=== PATIENT | female | born 1955 | race Caucasian/White ===

== ENCOUNTER → 2016-12-10 | Day surgery (SDC) | payer OTHER ==
[~2016-12-10] VITALS: Ht 165.1 cm; Wt 63.0 kg
[~2016-12-10] MED LIST: DIAZ10TA3 PO; IMMUNE GLOBULIN 5 GM IV SCH; IVIG 20 GM IV ONE; KETOROLAC 30 MG/ML VIAL IV PRN; LACT10SO PO; NYST1000 PO; OMEP20CA12 PO; ONDANSETRON 4 MG/2 ML (SDV) Z0FRAN IV PRN; diphenhydrAMINE 25 MG TAB (BENADRYL) PO ONE; diphenhydrAMINE 50 MG/ML INJ (BENADRYL) IVP ONE
[2016-12-10 15:39] VITALS: BP 115/72
[2016-12-10 16:01] LABS: MEAN PLATELET VOLUME 9.2 FL (7.4-10.4); RED BLOOD COUNT 4.22 10^6/uL (4.35-5.85); RED CELL DISTRIBUTION WIDTH 13.1 % (10.0-14.5); WHITE BLOOD COUNT 10.9 10^3/uL (4.3-11.0)
[2016-12-10 16:47] LABS: ALANINE AMINOTRANSFERASE 14 U/L (0-55); ALBUMIN 3.8 GM/DL (3.2-4.5); ANION GAP 8 MMOL/L (5-14); ASPARTATE AMINO TRANSFERASE 16 U/L (5-34); BILIRUBIN,TOTAL 0.4 MG/DL (0.1-1.0); BLOOD UREA NITROGEN 20 MG/DL (7-18); BUN/CREATININE RATIO 26; CALCIUM 9.1 MG/DL (8.5-10.1); CARBON DIOXIDE 25 MMOL/L (21-32); CHLORIDE 104 MMOL/L (98-107); CREATININE SERUM 0.78 MG/DL (0.60-1.30); GFR ESTIMATED > 60; GLUCOSE 100 MG/DL (70-105); POTASSIUM 4.5 MMOL/L (3.6-5.0); SODIUM 137 MMOL/L (135-145); TOTAL PROTEIN 6.8 GM/DL (6.4-8.2); hs C REACTIVE PROTEIN 0.08 MG/DL (0.00-0.50)
== END | disposition home or self-care (01) ==
LOC: SDC 15:30
PROVIDERS: ATTEND Internal Medicine
DX: R50.9 Fever, unspecified (principal); R78.81 Bacteremia; Z90.81 Acquired absence of spleen
CPT/HCPCS: 36415; 80053; 85027; 86141; 96365; 96366; 96375

== ENCOUNTER 2017-02-14 12:55 | Outpatient (RCR) | payer OTHER ==
[2017-01-17] VITALS (12 sets, daily range): BP systolic 107–141; BP diastolic 56–88
[2017-01-17 13:16] LABS: HEMOGLOBIN 13.5 G/DL (11.5-16.0); MEAN PLATELET VOLUME 8.9 FL (7.4-10.4); RED BLOOD COUNT 4.16 10^6/uL (4.35-5.85); RED CELL DISTRIBUTION WIDTH 13.3 % (10.0-14.5); WHITE BLOOD COUNT 11.9 10^3/uL (4.3-11.0)
[2017-01-17 13:37] LABS: ALANINE AMINOTRANSFERASE 15 U/L (0-55); ALBUMIN 3.9 GM/DL (3.2-4.5); ALKALINE PHOSPHATASE 72 U/L (40-136); BILIRUBIN,TOTAL 0.3 MG/DL (0.1-1.0); BUN/CREATININE RATIO 25; CALCIUM 9.2 MG/DL (8.5-10.1); CARBON DIOXIDE 29 MMOL/L (21-32); CHLORIDE 104 MMOL/L (98-107); CREATININE SERUM 0.75 MG/DL (0.60-1.30); GFR ESTIMATED > 60; GLUCOSE 114 MG/DL (70-105); POTASSIUM 4.3 MMOL/L (3.6-5.0); SODIUM 137 MMOL/L (135-145)
[~2017-02-14] VITALS: Ht 165.1 cm; Wt 63.0 kg
[2017-02-14] VITALS (9 sets, daily range): BP systolic 111–140; BP diastolic 66–84
[~2017-02-14 12:55] MED LIST changes: -IMMUNE GLOBULIN 5 GM IV SCH; +IVIG 10 GM (PRIVIGEN) 100 ML IV NR; -IVIG 20 GM IV ONE; +IVIG 5 GM (PRIVIGEN) 50 ML IV NR; -diphenhydrAMINE 25 MG TAB (BENADRYL) PO ONE; +diphenhydrAMINE 50 MG/ML INJ (BENADRYL) IV NR; -diphenhydrAMINE 50 MG/ML INJ (BENADRYL) IVP ONE
[2017-02-14] MEDS ORDERED: diphenhydrAMINE 50 MG/ML INJ (BENADRYL) ONE (13:15)
[2017-02-14] MEDS ORDERED: IVIG 10 GM (PRIVIGEN) 100 ML IV SCH (13:30)
[2017-02-14] MEDS ORDERED: KETOROLAC 30 MG/ML VIAL IV PRN (13:30)
[2017-02-14] MEDS ORDERED: IVIG 5 GM (PRIVIGEN) 50 ML IV SCH (13:30)
[2017-02-14] MEDS ORDERED: diphenhydrAMINE 50 MG/ML INJ (BENADRYL) IV PRN (13:30)
[2017-02-14] MEDS ORDERED: ONDANSETRON 4 MG/2 ML (SDV) Z0FRAN IV PRN (13:30)
[2017-02-14 14:28] LABS: MEAN PLATELET VOLUME 9.6 FL (7.4-10.4); RED BLOOD COUNT 3.93 10^6/uL (4.35-5.85); RED CELL DISTRIBUTION WIDTH 13.5 % (10.0-14.5); WHITE BLOOD COUNT 9.7 10^3/uL (4.3-11.0)
[2017-02-14 14:38] LABS: ALANINE AMINOTRANSFERASE 19 U/L (0-55); ALBUMIN 3.6 GM/DL (3.2-4.5); ALKALINE PHOSPHATASE 61 U/L (40-136); BILIRUBIN,TOTAL 0.2 MG/DL (0.1-1.0); BUN/CREATININE RATIO 30; CALCIUM 8.9 MG/DL (8.5-10.1); CARBON DIOXIDE 25 MMOL/L (21-32); CHLORIDE 105 MMOL/L (98-107); CREATININE SERUM 0.73 MG/DL (0.60-1.30); GFR ESTIMATED > 60; GLUCOSE 116 MG/DL (70-105); SODIUM 137 MMOL/L (135-145); TOTAL PROTEIN 6.4 GM/DL (6.4-8.2)
== END 2017-04-17 | disposition home or self-care (01) ==
LOC: SDC 12:55
PROVIDERS: ATTEND Nurse Practitioner Family
DX: R50.9 Fever, unspecified (principal); R78.81 Bacteremia; Z90.81 Acquired absence of spleen
CPT/HCPCS: 36415; 80053; 85027; 86141; 96365; 96366